=== PATIENT | female | born 1940 | race Caucasian/White ===

== ENCOUNTER 2021-03-03 08:13 | Inpatient (IN) | payer MEDICARE, BC ==
[~2021-03-03] VITALS: Ht 152.4 cm; Wt 70.3 kg
[2021-03-03] VITALS (7 sets, daily range): BP systolic 131–147; BP diastolic 6–76
--- NOTE | 2021-03-03 08:24 | NUR ---
Pt placed on Bi-Pap by M[employer] M[employer] T[employer]ER.
[2021-03-03] MEDS: MAGNESIUM SULFATE/D5W 100 ML IV SCH ×2 (08:30→09:30)
[2021-03-03] MEDS ORDERED: ALBUTEROL SULFATE 2.5 MG/3 ML NEBU NEB ONE (08:30)
[2021-03-03] MEDS ORDERED: FUROSEMIDE 40 MG/4 ML VIAL IV ONE (08:30)
[2021-03-03] MEDS ORDERED: IPRATROPIUM BROMIDE 0.5 MG/2.5 ML NEBU NEB ONE (08:30)
--- NOTE | 2021-03-03 08:31 | NUR ---
PT IS IN ROOM #1B. DR FRANCO EVALUATED THE PT.
[2021-03-03] MEDS ORDERED: FUROSEMIDE 40 MG/4 ML VIAL ONE (08:32)
[2021-03-03] MEDS ORDERED: levoFLOXacin 750 MG/D5W 150 ML PIGGYBACK IV ONE (08:45)
[2021-03-03 09:01] LABS: POTASSIUM 3.5 mmol/L (3.5-5.1)
[2021-03-03 09:09] LABS: *BILIRUBIN,URIN NEGATIVE (NEGATIVE); *BLOOD, URINE NEGATIVE (NEGATIVE); *CLARITY,URINE CLEAR (CLEAR); *COLOR,URINE YELLOW (YELLOW); *KETONES,URINE NEGATIVE (NEGATIVE); *UROBILINOGEN,URINE 0.2 E.U./dl (NORMAL); LEUKOCYTE ESTERASE ,URINE NEGATIVE (NEGATIVE); NITRITE, URINE NEGATIVE (NEGATIVE); UGLUCOSE NEGATIVE (NEGATIVE)
[2021-03-03 09:13] LABS: BILIRUBIN,TOTAL 0.4 mg/dL (0.2-1.0); TOTAL PROTEIN, SERUM 7.1 g/dL (6.4-8.2)
[2021-03-03] MEDS ORDERED: levoFLOXacin 750MG/D5W 150 ML IV ONE (09:13)
[2021-03-03 09:32] LABS: BASOPHILS # (AUTO) 0.1 K/uL (0.0-8.0); BASOPHILS % (AUTO) 1.1 % (0.0-2.0); EOSINOPHILS # (AUTO) 0.4 K/uL (0.0-0.7); EOSINOPHILS % (AUTO) 4.4 % (0.0-7.0); HEMATOCRIT 37.3 % (31.2-41.9); HEMOGLOBIN 11.9 g/dL (10.9-14.3); LYMPHOCYTES # (AUTO) 1.5 K/uL (20.0-40.0); LYMPHOCYTES % (AUTO) 18.8 % (20.5-51.5); MEAN CORPUSCULAR HEMOGLOBIN 28.8 uug (24.7-32.8); MEAN CORPUSCULAR HGB CONC 32 g/dL (32.3-35.6); MEAN CORPUSCULAR VOLUME 90.6 fL (75.5-95.3); MONOCYTES # (AUTO) 0.7 K/uL (2.0-10.0); MONOCYTES % (AUTO) 9.2 % (0.0-11.0); NEUTROPHILS # (AUTO) 5.4 K/uL (1.8-8.9); NEUTROPHILS % (AUTO) 66.5 % (38.5-71.5); PLATELET COUNT (AUTO) 247 K/uL (179-408); RED BLOOD CELL COUNT(AUTO) 4.12 MIL/uL (3.63-4.92); WHITE BLOOD COUNT (AUTO) 8.1 K/uL (3.8-11.8)
[2021-03-03] MEDS ORDERED: IOHEXOL 350 100 ML INFUS..BTL ONE (09:41)
[2021-03-03] MEDS ORDERED: IV NORMAL SALINE 250 ML IV ONE (09:41)
[2021-03-03] MEDS ORDERED: SWABABLE VALVE TRANSFER SET EA MC ONE (09:41)
--- NOTE | 2021-03-03 12:00 | NUR ---
Dr. Faria in to see pt and spoke with the pt and her son about plan of care. Pt was accepted for CCU admission by Dr. Faria.
[2021-03-03] MEDS ORDERED: MAGNESIUM HYDROXIDE 30 ML LIQUID UDC PO PRN (13:15)
[2021-03-03] MEDS ORDERED: ONDANSETRON 4 MG/2 ML VIAL IV PRN (13:15)
[2021-03-03] MEDS ORDERED: ACETAMINOPHEN 325 MG TABLET PO PRN (13:15)
[2021-03-03] MEDS ORDERED: HYDROCODONE/APAP 5-325MG TABLET PO PRN (13:15)
[2021-03-03] MEDS ORDERED: Z GUARD REMEDY PASTE 57 GM TUBE TOP PRN (13:15)
[2021-03-03] MEDS ORDERED: POTA10TA10 PO (14:39)
[2021-03-03] MEDS ORDERED: ATOR80TA PO (14:39)
[2021-03-03] MEDS ORDERED: FLEC100T2 PO (14:39)
[2021-03-03] MEDS ORDERED: FLUT1BLS12 IH (14:39)
[2021-03-03] MEDS ORDERED: SERT50TA PO (14:39)
[2021-03-03] MEDS ORDERED: MONT10TA33 PO (14:39)
[2021-03-03] MEDS ORDERED: DIGO125T PO (14:39)
[2021-03-03] MEDS ORDERED: TRAZ-252 PO (14:39)
[2021-03-03] MEDS ORDERED: APIX2.5T PO (14:39)
[2021-03-03] MEDS ORDERED: PANT40TA49 PO (14:39)
[2021-03-03] MEDS ORDERED: METO25TA6 PO (14:39)
[2021-03-03] MEDS ORDERED: DILT-32 PO (14:39)
[2021-03-03] MEDS ORDERED: AMLO10TA59 PO (14:39)
[2021-03-03] MEDS ORDERED: FLUT16SP NS (14:39)
--- NOTE | 2021-03-03 17:00 | NUR ---
SBAR REPORT RECEIVE FROM JEMIMA/RN ,PT.ADMITTED TO CCU #3,NO S/S OF ACUTE DISTRESS.
--- NOTE | 2021-03-03 17:06 | NUR ---
PT WAS TRANSFERED TO CCU ROOM #3. REPORT WAS GIVEN TO CCU RN JOSIAH.
--- NOTE | 2021-03-03 18:10 | NUR ---
FAMILY AT BEDSIDE,UPDATED WITH PT.CONDITION AND PLAN OF CARE.
--- NOTE | 2021-03-03 19:00 | NUR ---
Received patient in bed watching TV. Patient is A/Ox4 and in good spirits. She feels that ICU may be excessive for her condition, and she hopes she can be moved to a room with a bathroom. No complaints of SOB currently, no outward signs of distress. VS stable. Currently on 4L via NC SAT 97%.
[2021-03-03] MEDS ORDERED: TRAZODONE 50 MG TABLET PO ONE (22:45)
[2021-03-04] VITALS (13 sets, daily range): BP systolic 126–148; BP diastolic 61–72
[2021-03-04 05:12] LABS: BASOPHILS % (AUTO) 0.7 % (0.0-2.0); EOSINOPHILS # (AUTO) 0.2 K/uL (0.0-0.7); EOSINOPHILS % (AUTO) 5.3 % (0.0-7.0); HEMATOCRIT 33.1 % (31.2-41.9); MEAN CORPUSCULAR HGB CONC 33 g/dL (32.3-35.6); MEAN CORPUSCULAR VOLUME 96.1 fL (75.5-95.3); MONOCYTES # (AUTO) 0.6 K/uL (2.0-10.0); MONOCYTES % (AUTO) 12.5 % (0.0-11.0); NEUTROPHILS # (AUTO) 2.8 K/uL (1.8-8.9); NEUTROPHILS % (AUTO) 60.5 % (38.5-71.5); PLATELET COUNT (AUTO) 196 K/uL (179-408); RED BLOOD CELL COUNT(AUTO) 3.44 MIL/uL (3.63-4.92); WHITE BLOOD COUNT (AUTO) 4.6 K/uL (3.8-11.8)
[2021-03-04 05:27] LABS: THYROID STIMULATING HORMONE 2.152 mIU/mL (0.358-3.740)
[2021-03-04 05:54] LABS: POTASSIUM 3.1 mmol/L (3.5-5.1)
[2021-03-04 06:20] LABS: BILIRUBIN,TOTAL 0.4 mg/dL (0.2-1.0); CREATININE 0.7 mg/dL (0.6-1.3); TOTAL PROTEIN, SERUM 6.3 g/dL (6.4-8.2)
[2021-03-04 06:24] LABS: MAGNESIUM 1.9 mg/dL (1.8-2.4); PHOSPHOROUS 3.8 mg/dL (2.5-4.9)
[2021-03-04] MEDS ORDERED: POTASSIUM CHLORIDE 20 MEQ POWDER PACKET PO ONE (07:30)
[2021-03-04] MEDS ORDERED: POTASSIUM CHLORIDE 50 ML IV SCH (07:30)
--- NOTE | 2021-03-04 07:55 | NUR ---
Cardio Dr. Angel in the unit to see and assess pt. full report given. pt was initially on 4L/min via NC and per MD, he had titrated pt down to 2L/min via NC. oxygen saturation maintaining well. no SOB reported
[2021-03-04] MEDS ORDERED: POTASSIUM CHLORIDE 20 MEQ TAB.PRT.SR PO ONE ×2 (08:00→09:00)
[2021-03-04] MEDS: FUROSEMIDE 40 MG/4 ML VIAL IV SCH ×2 (08:11→17:28)
--- NOTE | 2021-03-04 08:20 | NUR ---
started pt on IV potassium as ordered by cardiology. upon initial starting of infusion, pt started complaining of severe pain and was yelling to stop infusion. Dr. Angel made aware and asked MD if he order can be switched to IV potassium with lidocaine and per MD, okay to stop IV potassium and just give her an another dose of 20meQ potassium PO in addition to the previously ordered 40mEq PO for a total of 60mEq, meds given as ordered.
[2021-03-04] MEDS: APIXABAN 2.5 MG TABLET PO SCH ×2 (08:36→20:05)
[2021-03-04] MEDS ORDERED: FUROSEMIDE 40 MG/4 ML VIAL IV SCH (09:00)
--- NOTE | 2021-03-04 12:30 | NUR ---
WICHO Zuluaga in the unit to see and asses full report given.
--- NOTE | 2021-03-04 18:40 | NUR ---
pt transferred to telemetry unit. pt picked up by RN and CENTER MANAGER via wheelchair. full report given to NGHIA Gautam. pt left in stable condition. VSS. pt remained on room air with no episodes of SOB or acute distress.
--- NOTE | 2021-03-04 18:47 | NUR ---
Pt received via wheelchair in room 316, stable, tele monitor placed on pt. Pt denies discomfort at this time.
--- NOTE | 2021-03-04 19:35 | NUR ---
PATIENT ALERT ORIENTED, NO SOB NO CHEST PAIN, PATIENT ON TELE MONITOR SINUS RHYTHM. PATIENT HAS NO COMPLAIN OF PAIN AT THIS TIME, OXYGEN SAT WNL, NO COUGHING NO CONGESTION NOTED, CONT TO MONITOR.
[2021-03-04] MEDS: GUAIFENESIN LA 600 MG TABLET.SA PO SCH (20:04)
--- NOTE | 2021-03-04 21:34 | NUR ---
Notify Dr Tristan patient requesting sleeping pill, with order of Ambien 5mg po qhs prn.
[2021-03-04] MEDS ORDERED: ZOLPIDEM 5 MG TABLET PO PRN (21:45)
[2021-03-05 00:15] VITALS: BP 125/62
[2021-03-05 04:30] VITALS: BP 125/72
[2021-03-05 06:45] LABS: BASOPHILS # (AUTO) 0.1 K/uL (0.0-8.0); EOSINOPHILS # (AUTO) 0.5 K/uL (0.0-0.7); EOSINOPHILS % (AUTO) 8.1 % (0.0-7.0); HEMATOCRIT 36.4 % (31.2-41.9); HEMOGLOBIN 12.2 g/dL (10.9-14.3); LYMPHOCYTES # (AUTO) 1.3 K/uL (20.0-40.0); LYMPHOCYTES % (AUTO) 22.2 % (20.5-51.5); MEAN CORPUSCULAR HEMOGLOBIN 31.5 uug (24.7-32.8); MEAN CORPUSCULAR HGB CONC 34 g/dL (32.3-35.6); MEAN CORPUSCULAR VOLUME 93.9 fL (75.5-95.3); MONOCYTES # (AUTO) 0.7 K/uL (2.0-10.0); MONOCYTES % (AUTO) 12.3 % (0.0-11.0); NEUTROPHILS # (AUTO) 3.4 K/uL (1.8-8.9); NEUTROPHILS % (AUTO) 56.4 % (38.5-71.5); PLATELET COUNT (AUTO) 242 K/uL (179-408); RED BLOOD CELL COUNT(AUTO) 3.88 MIL/uL (3.63-4.92); WHITE BLOOD COUNT (AUTO) 5.9 K/uL (3.8-11.8)
[2021-03-05 07:07] LABS: CREATININE 0.6 mg/dL (0.6-1.3); MAGNESIUM 1.8 mg/dL (1.8-2.4); PHOSPHOROUS 3.1 mg/dL (2.5-4.9); POTASSIUM 3.2 mmol/L (3.5-5.1)
--- NOTE | 2021-03-05 07:30 | NUR ---
Received patient in bed awake, alert and oriented times 4. No sign of respiratory distress noted. No SOB or pain reported. Patient has a heplock on tight wrist. Safety measures are in place. Will continue to monitor.
[2021-03-05 07:37] VITALS: BP 141/77
[2021-03-05] MEDS: GUAIFENESIN LA 600 MG TABLET.SA PO SCH (09:28)
[2021-03-05] MEDS: APIXABAN 2.5 MG TABLET PO SCH (09:29)
[2021-03-05] MEDS ORDERED: POTASSIUM CHLORIDE 20 MEQ TAB.PRT.SR PO ONE (09:45)
[2021-03-05] MEDS ORDERED: FLECAINIDE ACETATE 100 MG TABLET PO SCH (11:30)
[2021-03-05] MEDS ORDERED: FUROSEMIDE 20 MG/2 ML VIAL IV ONE (11:30)
[2021-03-05 11:55] VITALS: BP 130/80
[2021-03-05] MEDS ORDERED: FLEC100T3 PO (13:18)
[2021-03-05] MEDS ORDERED: FURO-152 PO (13:18)
[2021-03-05] MEDS ORDERED: POTA20TA10 PO (13:18)
[2021-03-05] MEDS ORDERED: POTA10CA43 PO (13:25)
[2021-03-05 15:33] VITALS: BP 139/79
--- NOTE | 2021-03-05 15:35 | NUR ---
Patient left with all belongings and paperwork. Belongings list signed and completed. ID band and IV removed. Patient teaching conducted. Patient refused pictures. Patient brought down in wheelchair by MACHINE H[employer]DLE CLEANER and picked up in front by her son.
== END 2021-03-05 15:35 | disposition home or self-care (01) | DRG 291 ==
LOC: ER 08:13 → CCU 16:31 → MEDSURG3 03-04 18:45 → TELE3 03-04 18:50
PROVIDERS: ADMIT Internal Medicine; ATTEND Nurse Practitioner Acute Care
PROC: 5A09357 Assistance with Respiratory Ventilation, Less than 24 Consecutive Hours, Continuous Positive Airway Pressure (ICD-10-PCS; principal; 2021-03-03)
DX: I11.0 Hypertensive heart disease with heart failure (principal); J96.01 Acute respiratory failure with hypoxia; D68.59 Other primary thrombophilia; I48.92 Unspecified atrial flutter; I50.33 Acute on chronic diastolic (congestive) heart failure; I48.0 Paroxysmal atrial fibrillation; I25.10 Atherosclerotic heart disease of native coronary artery without angina pectoris; Z79.01 Long term (current) use of anticoagulants; J44.9 Chronic obstructive pulmonary disease, unspecified; Z88.0 Allergy status to penicillin; Z88.2 Allergy status to sulfonamides; J45.909 Unspecified asthma, uncomplicated; I35.0 Nonrheumatic aortic (valve) stenosis; Z20.822 Contact with and (suspected) exposure to COVID-19
CPT/HCPCS: 36415; 70030-TC; 71045; 71275; 83605; 83735; 84100; 84443; 85025; 85730; 87040; 87086; 93005; 93307; 94660; A4663; G0378; J1940; J1956; J3480; J3590; J7050; Q9967